=== PATIENT | female | born 1945 | race African-American/Black ===

== ENCOUNTER 2021-01-28 18:06 | Inpatient (IN) | payer MEDICARE, MEDICAID ==
[~2021-01-28] VITALS: Ht 165.1 cm; Wt 89.6 kg
[2021-01-28 20:35] LABS: Hematocrit 34.3 % (36.0-46.0); Hemoglobin 11.6 g/dL (12.2-16.2); Mean Corpuscular Hemoglobin 29.2 pg (28.0-32.0); Mean Corpuscular Hgb Conc. 33.8 g/dL (32.0-36.0); Mean Corpuscular Volume 86.2 fL (80.0-100.0); Red Blood Cells 3.98 10^6/uL (4.0-5.20); White Blood Cell 10.6 10^3/uL (4.4-10.8)
[2021-01-28 20:36] LABS: Basophils % (manual) 0 (0.0-2.0); Blast Cells 0; Eosinophils % (manual) 0 (0-7); Metamyelocytes % 0; Myelocytes % 0; Promyelocytes % 0; Reactive Lymphocytes 0
[2021-01-28 20:55] LABS: Albumin 2.6 g/dL (3.4-5.0); Calcium 8.5 mg/dL (8.5-10.1)
[2021-01-28 21:00] LABS: BUN/Creatinine Ratio 20.9; Bilirubin, Total 0.9 mg/dL (0.2-1.0); Total Protein 8.3 g/dL (6.4-8.2)
[2021-01-28 21:41] LABS: Band Neutrophils % (manual) 6; Lymphocytes % (manual) 4 (10.0-50.0); Monocytes % (manual) 12 (0-12)
[2021-01-28] MEDS ORDERED: MORPHINE SULFATE INJECTION 2 MG/ML SYRG IV PRN (23:00)
[2021-01-28] MEDS ORDERED: ALBUMIN 5% 250 ML IV ONE (23:00)
[2021-01-28] MEDS ORDERED: NITROGLYCERIN 0.4 MG SL TAB SL PRN (23:00)
[2021-01-28] MEDS ORDERED: cefTRIAXone 1GM/50ML D5W 50 ML IV ONE (23:00)
[2021-01-28] MEDS ORDERED: AZITHROMYCIN 500MG/ 250ML 250 ML IV SCH (23:00)
[2021-01-28] MEDS ORDERED: ONDANSETRON HCL 4 MG/2 ML VIAL IV PRN (23:00)
[2021-01-28] MEDS ORDERED: TEMAZEPAM 15 MG CAP PO PRN (23:00)
[2021-01-28] MEDS ORDERED: ACETAMINOPHEN 500 MG TAB PO PRN (23:00)
[2021-01-28] MEDS: DexAMETHasone SOD PHOS 10MG/1ML VIAL INJ IV SCH (23:32)
[2021-01-28] MEDS: SODIUM CHLORIDE 0.9% 1,000 ML IV SCH (23:33)
[2021-01-29] MEDS ORDERED: diphenhdrAMINE HCL 50 MG/1 ML VL IV ONE (03:00)
[2021-01-29 06:35] LABS: Hematocrit 30.5 % (36.0-46.0); Hemoglobin 10.6 g/dL (12.2-16.2); Mean Corpuscular Hemoglobin 29.7 pg (28.0-32.0); Mean Corpuscular Hgb Conc. 34.6 g/dL (32.0-36.0); Mean Corpuscular Volume 85.6 fL (80.0-100.0); Red Blood Cells 3.56 10^6/uL (4.0-5.20); Red Cell Distribution Width 17.1 % (11.8-14.3); White Blood Cell 9.7 10^3/uL (4.4-10.8)
[2021-01-29 06:51] LABS: Albumin 2.6 g/dL (3.4-5.0); Calcium 8.2 mg/dL (8.5-10.1); Magnesium 3.8 mg/dL (1.6-2.6); Potassium 3.8 mmol/L (3.5-5.1)
[2021-01-29 07:02] LABS: Bilirubin, Total 0.7 mg/dL (0.2-1.0); CRP High Sensitivity 14.9 mg/dL (< 0.3); Total Protein 7.4 g/dL (6.4-8.2)
[2021-01-29 07:05] LABS: Basophils % (manual) 0 (0.0-2.0); Blast Cells 0; Eosinophils % (manual) 0 (0-7); Promyelocytes % 0; Reactive Lymphocytes 0
[2021-01-29 07:37] LABS: Band Neutrophils % (manual) 4; Lymphocytes % (manual) 8 (10.0-50.0); Metamyelocytes % 4; Monocytes % (manual) 6 (0-12); Myelocytes % 2
[2021-01-29] MEDS ORDERED: cefTRIAXone 1GM/50ML D5W 50 ML IV SCH (09:00)
[2021-01-29] MEDS ORDERED: ENOXAPARIN SOD 40 MG/0.4 ML SYRINGE SC SCH (10:00)
[2021-01-29] MEDS: DexAMETHasone SOD PHOS 10MG/1ML VIAL INJ IV SCH (10:30)
[2021-01-29] MEDS: PANTOPRAZOLE 40 MG TAB PO SCH (10:30)
[2021-01-29] MEDS: CHOLECALCIFEROL (VITD3) 2,000 UNIT CAP/TAB PO SCH (10:30)
[2021-01-29] MEDS: ASCORBIC ACID 1,000 MG TAB PO SCH (10:30)
[2021-01-29] MEDS: ZINC SULFATE 220mg CAP or TAB PO SCH (10:30)
[2021-01-29] MEDS ORDERED: FLUT50SP NAS (10:46)
[2021-01-29] MEDS ORDERED: AMLO-496 PO (10:46)
[2021-01-29] MEDS ORDERED: MELO1TAB73 PO (10:46)
[2021-01-29] MEDS ORDERED: ALLO100T PO (10:46)
[2021-01-29] MEDS: SODIUM CHLORIDE 0.9% 1,000 ML IV SCH ×2 (14:29→17:19)
[2021-01-29] MEDS ORDERED: REMDESIVIR PER PHARMACY 0 ML IV SCH (16:15)
[2021-01-29] MEDS ORDERED: FUROSEMIDE 20 MG/2 ML VIAL IV ONE (16:30)
[2021-01-29] MEDS ORDERED: DEXTROSE (50%) 50ML SYRG IV PRN (16:30)
[2021-01-29] MEDS ORDERED: hydrALAZINE HCL 20 MG/ML VL IV PRN (16:30)
[2021-01-29 16:41] LABS: Urine Bacteria NONE SEEN /hpf (None Seen); Urine Blood TRACE /uL (Negative); Urine Hyaline Cast FEW /lpf (0 - 2); Urine Mucus FEW (None Seen); Urine Specific Gravity 1.021 (1.001-1.035); Urine WBC 7 /hpf (0 - 5)
[2021-01-29 17:02] LABS: % Iron Saturation 12.4 % (15-50)
[2021-01-29] MEDS: InsuLIN REG 1unit/0.01ml Soln (100units/ml) SC SCH (18:00)
[2021-01-29] MEDS ORDERED: REMDESIVIR 200 MG in NS 210ml LOADING DOSE ADULT IV ONE (18:00)
[2021-01-29] MEDS: ACCU-CHEK COMFORT CURVE STRIP VI SCH (18:09)
[2021-01-29] MEDS: BUDESONIDE (INHALATION) 180 MCG IH IN SCH (18:53)
[2021-01-29] MEDS: PIPERACILLIN-TAZOB 3.375GM 100 ML IV SCH (20:40)
[2021-01-29] MEDS ORDERED: DOXYCYCLINE 100 MG TAB/CAP PO SCH (22:00)
[2021-01-29] MEDS: ENOXAPARIN SOD 40 MG/0.4 ML SYRINGE SC SCH (22:30)
[2021-01-30] MEDS: ACCU-CHEK COMFORT CURVE STRIP VI SCH ×4 (00:30→18:00)
[2021-01-30] MEDS: InsuLIN REG 1unit/0.01ml Soln (100units/ml) SC SCH ×4 (00:30→18:00)
[2021-01-30] MEDS: PIPERACILLIN-TAZOB 3.375GM 100 ML IV SCH ×4 (02:57→21:45)
[2021-01-30] MEDS: ALBUTEROL SULF HFA 90MCG INH 200DOSE IN PRN ×2 (07:58→20:58)
[2021-01-30] MEDS: BUDESONIDE (INHALATION) 180 MCG IH IN SCH ×2 (07:58→20:58)
[2021-01-30] MEDS: SODIUM CHLORIDE 0.9% 1,000 ML IV SCH (08:55)
[2021-01-30] MEDS: DexAMETHasone SOD PHOS 10MG/1ML VIAL INJ IV SCH (09:14)
[2021-01-30] MEDS: ASCORBIC ACID 1,000 MG TAB PO SCH (09:15)
[2021-01-30] MEDS: ZINC SULFATE 220mg CAP or TAB PO SCH (09:15)
[2021-01-30] MEDS: FUROSEMIDE 20 MG/2 ML VIAL IV SCH (09:15)
[2021-01-30] MEDS: CHOLECALCIFEROL (VITD3) 2,000 UNIT CAP/TAB PO SCH (09:16)
[2021-01-30] MEDS: IVERMECTIN 3 MG TAB PO SCH (09:16)
[2021-01-30] MEDS: amLODIPine BESYLATE 5 MG TAB PO SCH (09:17)
[2021-01-30] MEDS: ENOXAPARIN SOD 40 MG/0.4 ML SYRINGE SC SCH (09:18)
[2021-01-30] MEDS: PANTOPRAZOLE 40 MG TAB PO SCH (09:31)
[2021-01-30] MEDS ORDERED: AZITHROMYCIN 250 MG TAB PO SCH (10:00)
[2021-01-30 11:29] LABS: Lactic Acid w/Reflex 3.3 mmol/L (0.4-2.0)
[2021-01-30 11:31] LABS: Albumin 2.4 g/dL (3.4-5.0); Calcium 8.5 mg/dL (8.5-10.1); Magnesium 2.4 mg/dL (1.6-2.6); Potassium 3.4 mmol/L (3.5-5.1)
[2021-01-30 11:43] LABS: INR 1.06 (0.9-1.15)
[2021-01-30 11:45] LABS: BUN/Creatinine Ratio 18.5; Bilirubin, Total 0.7 mg/dL (0.2-1.0); CRP High Sensitivity 10.6 mg/dL (< 0.3); Total Protein 7.5 g/dL (6.4-8.2)
[2021-01-30] MEDS: REMDESIVIR 100mg 100 MG in SODIUM CHL 0.9% 230 ML IV SCH (16:09)
[2021-01-30] MEDS ORDERED: POTASSIUM EFFERVESENT TAB 25 MEQ PO ONE (17:15)
[2021-01-30 22:56] VITALS: BP 144/69
[2021-01-31] MEDS ORDERED: PNEUMOCOCCAL VACC POLYS 25 MCG/0.5 ML VIAL IM ONE (00:15)
[2021-01-31] MEDS ORDERED: INFLUENZA QUAD 2021-2022 0.5 ML SYRG IM ONE (00:15)
[2021-01-31] MEDS: ENOXAPARIN SOD 40 MG/0.4 ML SYRINGE SC SCH ×3 (01:00→21:39)
[2021-01-31] MEDS: ACCU-CHEK COMFORT CURVE STRIP VI SCH ×5 (01:00→23:45)
[2021-01-31] MEDS: SODIUM CHLORIDE 0.9% 1,000 ML IV SCH ×2 (01:35→06:06)
[2021-01-31] MEDS: PIPERACILLIN-TAZOB 3.375GM 100 ML IV SCH ×4 (02:06→20:19)
[2021-01-31 05:00] VITALS: BP 132/69
[2021-01-31] MEDS: InsuLIN REG 1unit/0.01ml Soln (100units/ml) SC SCH ×5 (05:52→23:45)
[2021-01-31 06:46] LABS: Basophils # (auto) 0 10 ^3/uL (0-0.2); Basophils % (auto) 0.3 % (0.0-2.0); Eosinophils # (auto) 0 10 ^3/uL (0-0.8); Eosinophils % (auto) 0.2 % (0.0-7.0); Hematocrit 30.5 % (36.0-46.0); Hemoglobin 10.3 g/dL (12.2-16.2); Lymphocytes # (auto) 0.9 10 ^3/uL (0.4-5.4); Mean Corpuscular Hemoglobin 28.9 pg (28.0-32.0); Mean Corpuscular Hgb Conc. 33.6 g/dL (32.0-36.0); Mean Corpuscular Volume 86.1 fL (80.0-100.0); Monocytes # (auto) 2.3 10 ^3/uL (0-1.3); Neutrophils % (auto) 77.5 % (37.0-80.0); Nucleated Red Blood Cells % 0.2 %; Red Blood Cells 3.55 10^6/uL (4.0-5.20); Red Cell Distribution Width 16.9 % (11.8-14.3); White Blood Cell 14.2 10^3/uL (4.4-10.8)
[2021-01-31 07:02] LABS: Albumin 2.2 g/dL (3.4-5.0); BUN/Creatinine Ratio 23.9; Potassium 3.7 mmol/L (3.5-5.1)
[2021-01-31] MEDS: BUDESONIDE (INHALATION) 180 MCG IH IN SCH ×2 (07:03→21:27)
[2021-01-31] MEDS: ALBUTEROL SULF HFA 90MCG INH 200DOSE IN PRN ×2 (07:03→21:27)
[2021-01-31 07:04] LABS: INR 1.12 (0.9-1.15)
[2021-01-31 07:05] LABS: Bilirubin, Total 0.7 mg/dL (0.2-1.0); Total Protein 6.2 g/dL (6.4-8.2)
[2021-01-31 09:00] VITALS: BP 156/72
[2021-01-31] MEDS: ZINC SULFATE 220mg CAP or TAB PO SCH (09:31)
[2021-01-31] MEDS: DexAMETHasone SOD PHOS 10MG/1ML VIAL INJ IV SCH (09:31)
[2021-01-31] MEDS: CHOLECALCIFEROL (VITD3) 2,000 UNIT CAP/TAB PO SCH (09:32)
[2021-01-31] MEDS: IVERMECTIN 3 MG TAB PO SCH (09:32)
[2021-01-31] MEDS: PANTOPRAZOLE 40 MG TAB PO SCH (09:32)
[2021-01-31] MEDS: ASCORBIC ACID 1,000 MG TAB PO SCH (09:32)
[2021-01-31] MEDS: FUROSEMIDE 20 MG/2 ML VIAL IV SCH (09:33)
[2021-01-31] MEDS: amLODIPine BESYLATE 5 MG TAB PO SCH (09:34)
[2021-01-31 13:00] VITALS: BP 144/68
[2021-01-31] MEDS: REMDESIVIR 100mg 100 MG in SODIUM CHL 0.9% 230 ML IV SCH (14:31)
[2021-01-31 16:41] VITALS: BP 142/67
[2021-01-31 22:00] VITALS: BP 121/37
[2021-02-01] MEDS: PIPERACILLIN-TAZOB 3.375GM 100 ML IV SCH ×4 (02:30→19:41)
[2021-02-01 05:00] VITALS: BP 108/51
[2021-02-01] MEDS: ACCU-CHEK COMFORT CURVE STRIP VI SCH ×2 (05:51→12:10)
[2021-02-01] MEDS: InsuLIN REG 1unit/0.01ml Soln (100units/ml) SC SCH ×2 (05:51→12:43)
[2021-02-01 06:20] LABS: Potassium 3.6 mmol/L (3.5-5.1)
[2021-02-01 06:27] LABS: Albumin 2.2 g/dL (3.4-5.0); BUN/Creatinine Ratio 22.8; Bilirubin, Total 0.6 mg/dL (0.2-1.0); Calcium 7.4 mg/dL (8.5-10.1)
[2021-02-01 06:32] LABS: Hemoglobin 9.4 g/dL (12.2-16.2); Mean Corpuscular Hemoglobin 29.1 pg (28.0-32.0); Mean Corpuscular Hgb Conc. 33.6 g/dL (32.0-36.0); Mean Corpuscular Volume 86.6 fL (80.0-100.0); Red Blood Cells 3.24 10^6/uL (4.0-5.20); Red Cell Distribution Width 17.1 % (11.8-14.3); White Blood Cell 10.8 10^3/uL (4.4-10.8)
[2021-02-01 06:44] LABS: Basophils % (manual) 0 (0.0-2.0); Blast Cells 0; Eosinophils % (manual) 0 (0-7); Metamyelocytes % 0; Myelocytes % 0; Promyelocytes % 0; Reactive Lymphocytes 0
[2021-02-01] MEDS: BUDESONIDE (INHALATION) 180 MCG IH IN SCH ×2 (06:45→22:16)
[2021-02-01] MEDS: ALBUTEROL SULF HFA 90MCG INH 200DOSE IN PRN ×2 (06:45→22:16)
[2021-02-01 07:57] LABS: Band Neutrophils % (manual) 3; Lymphocytes % (manual) 10 (10.0-50.0); Monocytes % (manual) 7 (0-12)
[2021-02-01 09:00] VITALS: BP 123/59
[2021-02-01] MEDS: FUROSEMIDE 20 MG/2 ML VIAL IV SCH (09:10)
[2021-02-01] MEDS: ZINC SULFATE 220mg CAP or TAB PO SCH (09:11)
[2021-02-01] MEDS: DexAMETHasone SOD PHOS 10MG/1ML VIAL INJ IV SCH (09:11)
[2021-02-01] MEDS: PANTOPRAZOLE 40 MG TAB PO SCH (09:12)
[2021-02-01] MEDS: ENOXAPARIN SOD 40 MG/0.4 ML SYRINGE SC SCH ×2 (09:13→21:47)
[2021-02-01] MEDS: CHOLECALCIFEROL (VITD3) 2,000 UNIT CAP/TAB PO SCH (09:13)
[2021-02-01] MEDS: amLODIPine BESYLATE 5 MG TAB PO SCH (09:13)
[2021-02-01] MEDS: ASCORBIC ACID 1,000 MG TAB PO SCH (09:13)
[2021-02-01] MEDS: IVERMECTIN 3 MG TAB PO SCH (09:14)
[2021-02-01] MEDS: SODIUM CHLORIDE 0.9% 1,000 ML IV SCH (12:09)
[2021-02-01 13:00] VITALS: BP 134/70
[2021-02-01] MEDS: REMDESIVIR 100mg 100 MG in SODIUM CHL 0.9% 230 ML IV SCH (14:28)
[2021-02-01 17:00] VITALS: BP 135/71
[2021-02-01 22:25] VITALS: BP 147/69
[2021-02-02] MEDS: SODIUM CHLORIDE 0.9% 1,000 ML IV SCH ×2 (03:35→14:20)
[2021-02-02] MEDS: PIPERACILLIN-TAZOB 3.375GM 100 ML IV SCH ×4 (04:27→20:00)
[2021-02-02 05:25] VITALS: BP 128/69
[2021-02-02 06:45] LABS: Albumin 2.2 g/dL (3.4-5.0); Calcium 7.9 mg/dL (8.5-10.1); Potassium 3.4 mmol/L (3.5-5.1)
[2021-02-02 06:50] LABS: BUN/Creatinine Ratio 22.9; Bilirubin, Total 0.5 mg/dL (0.2-1.0); Total Protein 6.1 g/dL (6.4-8.2)
[2021-02-02] MEDS: ALBUTEROL SULF HFA 90MCG INH 200DOSE IN PRN ×2 (07:50→23:16)
[2021-02-02] MEDS: BUDESONIDE (INHALATION) 180 MCG IH IN SCH ×2 (07:50→23:16)
[2021-02-02 09:00] VITALS: BP 124/65
[2021-02-02] MEDS: DexAMETHasone SOD PHOS 10MG/1ML VIAL INJ IV SCH (10:06)
[2021-02-02] MEDS: amLODIPine BESYLATE 5 MG TAB PO SCH (10:07)
[2021-02-02] MEDS: ASCORBIC ACID 1,000 MG TAB PO SCH (10:07)
[2021-02-02] MEDS: ENOXAPARIN SOD 40 MG/0.4 ML SYRINGE SC SCH ×2 (10:07→21:09)
[2021-02-02] MEDS: IVERMECTIN 3 MG TAB PO SCH (10:07)
[2021-02-02] MEDS: PANTOPRAZOLE 40 MG TAB PO SCH (10:07)
[2021-02-02] MEDS: CHOLECALCIFEROL (VITD3) 2,000 UNIT CAP/TAB PO SCH (10:07)
[2021-02-02] MEDS: ZINC SULFATE 220mg CAP or TAB PO SCH (10:08)
[2021-02-02] MEDS: FUROSEMIDE 20 MG/2 ML VIAL IV SCH (10:08)
[2021-02-02 12:54] VITALS: BP 110/54
[2021-02-02] MEDS ORDERED: VANCOMYCIN HCL 125MG/5ML ORAL SOL PO ONE (14:00)
[2021-02-02] MEDS ORDERED: POTASSIUM EFFERVESENT TAB 25 MEQ PO ONE (14:00)
[2021-02-02] MEDS: REMDESIVIR 100mg 100 MG in SODIUM CHL 0.9% 230 ML IV SCH (15:38)
[2021-02-02 17:04] VITALS: BP 129/78
[2021-02-02] MEDS ORDERED: VANCOMYCIN HCL 125MG/5ML ORAL SOL PO SCH (18:00)
[2021-02-02 22:00] VITALS: BP 147/64
[2021-02-03] MEDS: PIPERACILLIN-TAZOB 3.375GM 100 ML IV SCH ×4 (01:32→19:14)
[2021-02-03] MEDS: SODIUM CHLORIDE 0.9% 1,000 ML IV SCH (04:53)
[2021-02-03 05:00] VITALS: BP 146/67
[2021-02-03 06:55] LABS: Hematocrit 27.7 % (36.0-46.0)
[2021-02-03 06:57] LABS: Hemoglobin 9.9 g/dL (12.2-16.2)
[2021-02-03 07:17] LABS: Potassium 3.7 mmol/L (3.5-5.1)
[2021-02-03 07:29] LABS: Albumin 2.2 g/dL (3.4-5.0); BUN/Creatinine Ratio 23.3; Bilirubin, Total 0.6 mg/dL (0.2-1.0); CRP High Sensitivity 4.42 mg/dL (< 0.3); Calcium 7.9 mg/dL (8.5-10.1); Magnesium 2.9 mg/dL (1.6-2.6); Total Protein 6.2 g/dL (6.4-8.2)
[2021-02-03 08:00] VITALS: BP 143/67
[2021-02-03] MEDS: BUDESONIDE (INHALATION) 180 MCG IH IN SCH ×2 (08:41→20:09)
[2021-02-03] MEDS: ALBUTEROL SULF HFA 90MCG INH 200DOSE IN PRN (08:41)
[2021-02-03 09:00] VITALS: BP 143/67
[2021-02-03] MEDS: DexAMETHasone SOD PHOS 10MG/1ML VIAL INJ IV SCH (09:23)
[2021-02-03] MEDS: FUROSEMIDE 20 MG/2 ML VIAL IV SCH (09:24)
[2021-02-03] MEDS: ZINC SULFATE 220mg CAP or TAB PO SCH (09:24)
[2021-02-03] MEDS: POTASSIUM CHL 10 Meq TABLET PO SCH (09:25)
[2021-02-03] MEDS: ASCORBIC ACID 1,000 MG TAB PO SCH (09:26)
[2021-02-03] MEDS: PANTOPRAZOLE 40 MG TAB PO SCH ×2 (09:26→22:02)
[2021-02-03] MEDS: CHOLECALCIFEROL (VITD3) 2,000 UNIT CAP/TAB PO SCH (09:26)
[2021-02-03] MEDS: amLODIPine BESYLATE 5 MG TAB PO SCH (09:26)
[2021-02-03] MEDS: IVERMECTIN 3 MG TAB PO SCH (09:26)
[2021-02-03] MEDS: ENOXAPARIN SOD 40 MG/0.4 ML SYRINGE SC SCH ×2 (09:27→22:02)
[2021-02-03 12:55] VITALS: BP 136/75
[2021-02-03 17:12] VITALS: BP 99/59
[2021-02-03 21:30] VITALS: BP 127/69
[2021-02-04] MEDS: PIPERACILLIN-TAZOB 3.375GM 100 ML IV SCH ×4 (01:28→20:41)
[2021-02-04 05:00] VITALS: BP 128/69
[2021-02-04] MEDS: ALBUTEROL SULF HFA 90MCG INH 200DOSE IN PRN ×2 (06:26→22:33)
[2021-02-04] MEDS: BUDESONIDE (INHALATION) 180 MCG IH IN SCH ×2 (06:26→22:33)
[2021-02-04 08:00] VITALS: BP_SYST 127; BP_SYST 134; BP_DIAS 66; BP_DIAS 69
[2021-02-04] MEDS: DexAMETHasone SOD PHOS 10MG/1ML VIAL INJ IV SCH (08:03)
[2021-02-04] MEDS: POTASSIUM CHL 10 Meq TABLET PO SCH (08:03)
[2021-02-04] MEDS: ZINC SULFATE 220mg CAP or TAB PO SCH (08:03)
[2021-02-04] MEDS: PANTOPRAZOLE 40 MG TAB PO SCH ×2 (08:04→21:25)
[2021-02-04] MEDS: ASCORBIC ACID 1,000 MG TAB PO SCH (08:04)
[2021-02-04] MEDS: amLODIPine BESYLATE 5 MG TAB PO SCH (08:04)
[2021-02-04] MEDS: CHOLECALCIFEROL (VITD3) 2,000 UNIT CAP/TAB PO SCH (08:05)
[2021-02-04] MEDS: ENOXAPARIN SOD 40 MG/0.4 ML SYRINGE SC SCH ×2 (08:05→21:25)
[2021-02-04 08:12] LABS: Hematocrit 27.5 % (36.0-46.0); Hemoglobin 9.8 g/dL (12.2-16.2); Mean Corpuscular Hemoglobin 30.2 pg (28.0-32.0); Mean Corpuscular Hgb Conc. 35.7 g/dL (32.0-36.0); Mean Corpuscular Volume 84.5 fL (80.0-100.0); Red Blood Cells 3.25 10^6/uL (4.0-5.20); Red Cell Distribution Width 16.9 % (11.8-14.3); White Blood Cell 6.9 10^3/uL (4.4-10.8)
[2021-02-04 08:17] LABS: Potassium 3.7 mmol/L (3.5-5.1)
[2021-02-04 08:49] LABS: BUN/Creatinine Ratio 28.9
[2021-02-04 08:50] LABS: Albumin 2.2 g/dL (3.4-5.0); Bilirubin, Total 0.4 mg/dL (0.2-1.0); Calcium 8.1 mg/dL (8.5-10.1)
[2021-02-04 08:56] LABS: Band Neutrophils % (manual) 0; Basophils % (manual) 0 (0.0-2.0); Blast Cells 0; Metamyelocytes % 0; Promyelocytes % 0; Reactive Lymphocytes 0
[2021-02-04 09:03] LABS: Eosinophils % (manual) 1 (0-7); Lymphocytes % (manual) 17 (10.0-50.0); Monocytes % (manual) 10 (0-12); Myelocytes % 3
[2021-02-04] MEDS: FUROSEMIDE 20 MG/2 ML VIAL IV SCH (10:00)
[2021-02-04 12:00] VITALS: BP 120/68
[2021-02-04 16:00] VITALS: BP 143/97
[2021-02-04 20:00] VITALS: BP 125/59
[2021-02-04 22:00] VITALS: BP 125/69
[2021-02-05] MEDS: PIPERACILLIN-TAZOB 3.375GM 100 ML IV SCH ×4 (02:30→20:00)
[2021-02-05 05:00] VITALS: BP 152/75
[2021-02-05 06:24] VITALS: BP 118/68
[2021-02-05 07:19] LABS: White Blood Cell 5.8 10^3/uL (4.4-10.8)
[2021-02-05 07:22] LABS: Hematocrit 26.3 % (36.0-46.0); Hemoglobin 9.6 g/dL (12.2-16.2); Mean Corpuscular Volume 84.9 fL (80.0-100.0); Red Cell Distribution Width 17.3 % (11.8-14.3)
[2021-02-05 07:23] LABS: Mean Corpuscular Hgb Conc. 36.5 g/dL (32.0-36.0)
[2021-02-05 07:24] LABS: Band Neutrophils % (manual) 0; Basophils % (manual) 0 (0.0-2.0); Blast Cells 0; Metamyelocytes % 0; Myelocytes % 0; Promyelocytes % 0; Reactive Lymphocytes 0
[2021-02-05 07:29] LABS: Potassium 3.4 mmol/L (3.5-5.1)
[2021-02-05 07:41] LABS: Albumin 2.3 g/dL (3.4-5.0); BUN/Creatinine Ratio 26.2; Bilirubin, Total 0.4 mg/dL (0.2-1.0)
[2021-02-05 09:00] VITALS: BP 153/70
[2021-02-05] MEDS: DexAMETHasone SOD PHOS 10MG/1ML VIAL INJ IV SCH (09:21)
[2021-02-05] MEDS: ZINC SULFATE 220mg CAP or TAB PO SCH (09:22)
[2021-02-05] MEDS: POTASSIUM CHL 10 Meq TABLET PO SCH (09:22)
[2021-02-05] MEDS: FUROSEMIDE 20 MG/2 ML VIAL IV SCH (09:22)
[2021-02-05] MEDS: PANTOPRAZOLE 40 MG TAB PO SCH (09:23)
[2021-02-05] MEDS: ENOXAPARIN SOD 40 MG/0.4 ML SYRINGE SC SCH (09:23)
[2021-02-05] MEDS: ASCORBIC ACID 1,000 MG TAB PO SCH (09:23)
[2021-02-05] MEDS: CHOLECALCIFEROL (VITD3) 2,000 UNIT CAP/TAB PO SCH (09:23)
[2021-02-05] MEDS: amLODIPine BESYLATE 5 MG TAB PO SCH (09:23)
[2021-02-05 09:52] LABS: Eosinophils % (manual) 1 (0-7); Lymphocytes % (manual) 30 (10.0-50.0); Monocytes % (manual) 3 (0-12)
[2021-02-05] MEDS ORDERED: CHOL1CAP47 PO (10:46)
[2021-02-05] MEDS ORDERED: DEXA4TAB90 PO (10:46)
[2021-02-05] MEDS ORDERED: ALBUAER3 IN (10:46)
[2021-02-05] MEDS ORDERED: LEVO750T64 PO (10:46)
[2021-02-05] MEDS ORDERED: ASCO10003 PO (10:46)
[2021-02-05 13:00] VITALS: BP 122/62
[2021-02-05 17:00] VITALS: BP 128/68
[2021-02-05 18:40] VITALS: BP 128/68
== END 2021-02-05 20:45 | disposition home or self-care (01) | DRG 871 ==
LOC: EDBD 18:06 → ER 18:10 → TELE 22:56 → TELE-EAST 23:43 → TELE 01-29 04:21 → TELE-EAST 01-31 00:38
PROVIDERS: ADMIT Nurse Practitioner; ATTEND Internal Medicine Pulmonary Disease
PROC: XW033E5 Introduction of Remdesivir Anti-infective into Peripheral Vein, Percutaneous Approach, New Technology Group 5 (ICD-10-PCS; principal; 2021-01-29)
DX: A41.89 Other specified sepsis (principal); U07.1 COVID-19; J12.82 Pneumonia due to coronavirus disease 2019; J96.01 Acute respiratory failure with hypoxia; N17.0 Acute kidney failure with tubular necrosis; E43 Unspecified severe protein-calorie malnutrition; D64.9 Anemia, unspecified; E55.9 Vitamin D deficiency, unspecified; E66.01 Morbid (severe) obesity due to excess calories; D89.839 Cytokine release syndrome, grade unspecified; R42 Dizziness and giddiness; I12.9 Hypertensive chronic kidney disease with stage 1 through stage 4 chronic kidney disease, or unspecified chronic kidney disease; E87.6 Hypokalemia; N18.2 Chronic kidney disease, stage 2 (mild); Z68.32 Body mass index [BMI] 32.0-32.9, adult
CPT/HCPCS: 36415; 36600; 71045; 74176; 80053; 80061; 81001; 82306; 82728; 82805; 82962; 83036; 83540; 83550; 83605; 83615; 83735; 83880; 84443; 84484; 85007; 85014; 85018; 85025; 85027; 85379; 85610; 86141; 87426; 87493; 90686; 93005; 93306; 93970; 94640; 96365; 96368; 97110; 97116; 97163; 97530; G0378; J0696; J1100; J1815; J2405; J2543

== ENCOUNTER 2024-04-06 11:55 | Inpatient (IN) | payer MEDICARE, MEDICAID ==
[~2024-04-06] VITALS: Ht 162.6 cm; Wt 85.1 kg
[~2024-04-06 11:55] MED LIST: ALBUAER3 IN; ALLO100T PO; AMLO1TAB23 PO; ASCO10003 PO; CHOL1CAP47 PO; DEXA4TAB90 PO; LEVO750T40 PO
--- NOTE | 2024-04-06 12:12 | ECG ---
[facility] Test Date: 2024-04-06 Test Time: 12:11:11 Pat Name: SAMRA BORRERO Department: ER Room: [address] [place] [address] Gender: F Parts Department Manager: CHIDI : 1945 Requested By: BARON SHEIKH Order Number: [id number] Reading MD: Cheng Leyva Measurements Intervals [place] Rate: 65 P: 27 ND: 161 QRS: -24 QRSD: 95 T: 19 QT: 478 QTc: 498 Interpretive Statements Sinus rhythm Probable left atrial enlargement Abnormal R-wave progression, late transition Left ventricular hypertrophy Borderline prolonged QT interval Electronically Signed On 04-10-2024 21:50:22 PST by Cheng Leyva Please click the below link to view image of tracing.
--- NOTE | 2024-04-06 12:18 | ED.PDOC ---
HPI Comments GISSELL: HPI: Poor Historian. 78-year-old female presents to the ED from outpatient clinic for evaluation of hypertension. Patient was on her way to get a vaginal ablation and she was found with elevated blood pressure greater than 200 systolic daily. She did take her medication for blood pressure this morning. She is on losartan. Patient has associated mild dizziness. Initial blood pressure here in triage was right-sided 209/107 and left-sided tooth 33/93. Heart rate is normal. Patient has some associated mild dizziness but no headaches or focal neurological deficits. Past Medical History: Hypertension, gout, anemia Past Surgical History: REVIEW OF SYSTEMS: CONSTITUTIONAL: Denies acute: fever, diaphoresis, chills, generalized weakness. HEAD: Denies acute: headache, photophobia Eyes: Denies acute: Double vision, vision loss, eye pain, eye discharge. EARS: Denies acute: tinnitus, hearing loss, ear discharge, ear pain, THROAT: Denies acute: sore throat, swelling, difficulty swallowing , pain with swallowing, change in voice. NECK: Denies acute: neck pain, neck swelling, stiff neck. HEART: Denies acute : chest pain, palpitations, LUNGS: Denies acute: SOB, wheezing, cough, hemoptysis ABDOMEN: Denies acute: abdominal pain, Nausea, Vomiting, diarrhea, melena , hematemesis, hematochezia SKIN: Denies acute: rash, redness, lesions, itchiness. EXTREMITIES: Denies acute: calf pain, numbness, tingling, weakness, denies pain in extremity. Denies acute: Low back pain. Neuro: Denies acute: focal neurological deficit, motor or sensory focal neurological deficit, tremors, seizure like activity, confusion, dizziness, change in mental status, loss of bowel or bladder function, cauda equina like symptoms. : Denies acute: dysuria, hematuria, flank pain, increase in urinary frequency. PSYCH: Denies acute: hallucination, suicidal ideation, homicidal ideation. FEMALE: Denies acute: abnormal vaginal bleeding, foul odor, unusual discharge. PHYSICAL EXAM: General: no acute distress, awake and alert. Head: normocephalic, atraumatic. Neck: supple, trachea is midline, no swelling. Throat: Normal phonation. Eyes:, no erythema, no purulent discharge, no proptosis, no icterus. Heart: regular rate, regular rhythm, no significant murmur appreciated. Lungs: no apparent respiratory distress, Able to speak in full sentences. No wheezing, no rhonchi, no crackles. No stridors Clear to auscultation bilaterally. Abdomen: non tender to palpation, non distended, soft, no guarding, no rebound, + bowel sounds. Neuro: Awake, Alert, oriented to name, self, situation, follows commands GCS=15. Speech is normal. Skin: no petechia, no purpura, no cyanosis, non-pale, not jaundice. Lower extremities: --no - Pitting edema no deformity, no focal swelling, no calf TTP. Makes eye contact. moves all four extremities. Face: no apparent facial droop. Ambulating in the ED independently. ED COURSE: Chief Complaint: High Blood Pressure Time Seen by MD: 12:05 Reviewed Notes: Nurses Notes, Allergies Allergies: Coded Allergies: NO KNOWN ALLERGIES (Unverified , 01/28/21) Home Meds Active Scripts Levofloxacin Hemihydrate (LEVOFLOXACIN) 750 Mg Tab, 1 TAB PO DAILY, #5 TAB Prov:PRIMITIVO AZUL MD 02/05/21 Dexamethasone (Decadron) 4 Mg Tab, 4 MG PO DAILY PRN, #7 TAB Prov:PRIMITIVO AZUL MD 02/05/21 Cholecalciferol (Vitamin D3 Super Strength) 2,000 Unit Cap, 4000 UNIT PO DAILY for 30 Days, #30 CAP Prov:PRIMITIVO AZUL MD 02/05/21 Ascorbic Acid (Gnp Vitamin C W/Katelynn Hips) 1,000 Mg Tab, 1000 MG PO DAILY for 30 Days, #30 TAB Prov:PRIMITIVO AZUL MD 02/05/21 Albuterol Sulfate (VENTOLIN MDI) 90 Mcg Ih, 180 MCG IN TIDPRN PRN for 30 Days, #30 INH Prov:PRIMITIVO AZUL MD 02/05/21 Reported Medications Ferrous Sulfate (Ferosul) 325 Mg Tab 04/06/24 Losartan Potassium (Losartan Potassium) 50 Mg Tab, 2 TAB PO 04/06/24 Alendronate Sodium (Alendronate Sodium) 70 Mg Tab, 1 04/06/24 Allopurinol (Allopurinol) 100 Mg Tab, 1 TAB PO BID 01/29/21 Amlodipine Besylate (Amlodipine Besylate) 10 Mg Tab, 1 TAB PO DAILY 01/29/21 Information Source: Patient Mode of Arrival: Ambulatory Severity: Moderate Past Medical History PAST MEDICAL HISTORY: HTN Surgical History: Denies all surgeries MILK COLLECTOR History: No Pertinent MILK COLLECTOR History Family History Family History: Reviewed,noncontributory to illness, Unknown Social History Smoker: Non-Smoker Alcohol: Denies ETOH Use Drugs: Denies Drug Use Lives In: Home Was a procedure done? Was a procedure done?: No CP Differential Dx Differential Diagnosis: N/A Differential Diagnosis: Other (DDX include renal disease, thyroid disease, electrolyte abnormality, increased salt intake, medications non-compliance, undiagnosed HTN, Hypertensive crisis, hypertensive urgency., drug toxicity.) X-Ray, Labs, Meds, VS Vital Signs Date Time Temp Pulse Resp B/P (MAP) Pulse Ox O2 Delivery O2 Flow Rate FiO2 04/06/24 13:25 140/80 04/06/24 13:13 97.9 67 16 177/78 (111) 99 97.9 04/06/24 12:25 65 16 98 Room Air 04/06/24 12:25 98.7 65 17 197/86 (123) 98 98.7 04/06/24 12:24 198/86 04/06/24 12:11 65 04/06/24 12:08 97.8 69 20 209/107 (141) 98 Lab Test 04/06/24 13:34 04/06/24 12:16 Range/Units Troponin I High Sensitivity 10 10 </=34 ng/L White Blood Count 4.5 4.4-10.8 10^3/uL Red Blood Count 4.02 4.0-5.20 10^6/uL Hemoglobin 12.1 L 12.2-16.2 g/dL Hematocrit 33.9 L 36.0-46.0 % Mean Corpuscular Volume 84.2 80.0-100.0 fL Mean Corpuscular Hemoglobin 30.0 28.0-32.0 pg Mean Corpuscular Hemoglobin Concent 35.7 32.0-36.0 g/dL Red Cell Distribution Width 16.7 H 11.8-14.3 % Platelet Count 257 140-450 10^3/uL Mean Platelet Volume 8.8 6.9-10.8 fL Neutrophils (%) (Auto) 37.0-80.0 % Lymphocytes (%) (Auto) 10.0-50.0 % Monocytes (%) (Auto) 0.0-12.0 % Basophils (%) (Auto) 0.0-2.0 % Neutrophils # (Auto) 1.6-8.6 10 ^3/uL Lymphocytes # (Auto) 0.4-5.4 10 ^3/uL Monocytes # (Auto) 0-1.3 10 ^3/uL Differential Total Cells Counted 100.0 100 Neutrophils % (Manual) 50 37.0-80.0 Band Neutrophils % (Manual) 1 Lymphocytes % (Manual) 31 10.0-50.0 Monocytes % (Manual) 17 H 0-12 Eosinophils % (Manual) 1 0-7 Basophils % (Manual) 0 0.0-2.0 Metamyelocytes % (manual) 0 Myelocytes % (Manual) 0 Promyelocytes % (Manual) 0 Blast Cells % (Manual) 0 Reactive Lymphocytes 0 Platelet Estimate [place] Large Platelets Few Sodium Level 138 136-145 mmol/L Potassium Level 3.8 3.5-5.1 mmol/L Chloride Level 104 98-107 mmol/L Carbon Dioxide Level 28 20-31 mmol/L Anion Gap 6 5-15 Blood Urea Nitrogen 17 9-23 mg/dL Creatinine 0.90 0.550-1.02 mg/dL Glomerular Filtration Rate Calc 65 >90 mL/min BUN/Creatinine Ratio 18.9 10.0-20.0 Serum Glucose 89 74-106 mg/dL Calcium Level 9.9 8.7-10.4 mg/dL Total Bilirubin 0.6 0.2-1.0 mg/dL Aspartate Amino Transferase (AST) 23 13-40 U/L Alanine Aminotransferase (ALT) 11 7-40 U/L Alkaline Phosphatase 78 46-116 U/L Total Protein 7.5 5.7-8.2 g/dL Albumin 4.3 3.2-4.8 g/dL Current Medications Medications (Trade) Dose Ordered Sig/Jennifer Route Start Time Stop Time Status Last Admin Nitroglycerin (Ntrostat Sublingual) 0.4 mg ONCE ONCE SL 04/06/24 12:15 04/06/24 12:16 DC 04/06/24 12:24 Meclizine HCl (Antivert Tablet) 25 mg ONCE ONCE PO 04/06/24 14:45 04/06/24 14:46 DC 04/06/24 15:[address] [address] Ph: [phone] DIAGNOSTIC IMAGING Diagnostic Imaging Report : [id number] Signed PATIENT: SAMRA BORRERO ACCT: [id number] UNIT: [id number] : 1945 LOC: ER ROOM / BED: / AGE / SEX: 78 / F ADM STATUS: REG ER SERVICE 1203 ORDERING PHYSICIAN: BARON SHEIKH DO PROCEDURE(s): HWOCT - HEAD WITHOUT CONTRAST REASON: HTN ORDER NUMBER(s): [id number], ACCESSION NUMBER(s): [id number] EXAM: CT HEAD WITHOUT CONTRAST INDICATION: HTN TECHNIQUE: CT of the head without intravenous contrast. Radiation Dose : 1. Head: CT Dose: CTDI volume is 63.4 mGy. Dose-length product is 1122.4 mGy*cm The dose indicators for CT are the volume Computed Tomography (CT) Dose Index (CTDIvol) and the Dose Length Product (DLP), and are measured in units of mGy and mGy-cm, respectively. These indicators are not patient dose, but values generated from the CT scanner acquisition factors. The report includes radiation exposure data for exposures received during this examination. COMPARISON: None FINDINGS: There is no evidence of acute intracranial hemorrhage, extra-axial collection, mass effect, midline shift, herniation or hydrocephalus. The ventricles, sulci and cisterns are age appropriate. The brandon-white differentiation is intact. The visualized paranasal sinuses and mastoid air cells are clear. The surrounding soft tissues and osseous structures are unremarkable. IMPRESSION: No acute intracranial abnormality. ATED BY: LYLE REID MD DICTATED DATE/TIME: 04/06/241246 SIGNED BY: LYLE REID MD SIGNED DATE/TIME: 04/06/241246 CC: [address] [address] Ph: [phone] DIAGNOSTIC IMAGING Diagnostic Imaging Report : [id number] Signed PATIENT: SAMRA BORRERO ACCT: [id number] UNIT: [id number] : 1945 LOC: ER ROOM / BED: / AGE / SEX: 78 / F ADM STATUS: REG ER SERVICE 1203 ORDERING PHYSICIAN: ABRON SHEIKH DO PROCEDURE(s): CXRP - CHEST PORTABLE REASON: HTN ORDER NUMBER(s): [id number], ACCESSION NUMBER(s): [id number] EXAM: XY CHEST PORTABLE Indication: HTN Technique: Single frontal view of the chest was obtained Comparison: CHEST PORTABLE on DOS: 02/01/21, CHEST PORTABLE on DOS: 01/29/21, CHEST PORTABLE on DOS: 01/28/21 FINDINGS: Lines and Tubes: None Lungs: No focal consolidation. Pleura: No effusion. No pneumothorax. Cardiomediastinal contours: Unremarkable. Atherosclerotic vascular calcifications of the thoracic aorta are noted. Bones: No acute osseous abnormality. IMPRESSION: No acute cardiopulmonary disease. ATED BY: LYLE REID MD DICTATED DATE/TIME: 04/06/24 1246 SIGNED BY: LYLE REID MD SIGNED DATE/TIME: 04/06/24 1246 CC: Time of 1ST Reevaluation: 12:35 Reevaluation 1ST: Unchanged Patient Education/Counseling: Diagnosis, Treatment Family Education/Counseling: Diagnosis, Treatment Comments Patient presented with the above HPI.--hypertension and dizziness----workup was initiated. patient was found with the above mentioned diagnosis. the following medications were ordered: please refer to order lists of meds and tests obtained by myself Dr. Sheikh. Patient ED course and VS have been stabilized. Patient has been reassessed in the ED and remained in a stable condition. Pertinent incidental findings were discussed with the patient and/or family. Patient/family voices understanding and is agreeable with plan. Patient has been observed in the ED adequate length of time to insure improvement/stability. Escalation of care considered: Consideration of escalation to observation or admission Patient was ADMITTED to the medicine team for further evaluation and treatment of their presentation. All the reports of any imaging studies that were ordered by myself were reviewed by myself. Departure 1 Departure Time of Disposition: 14:34 Impression: Primary Impression: Hypertensive urgency Additional Impression: Dizziness Disposition: ADMITTED INPATIENT Admit to: Tele Condition: Guarded Discharged With: Self Critical Care Note Critical Care Time?: Yes (35 min-critical care time only) Heart Score Heart Score: Heart Score Response (Comments) Value History Slightly Suspicious 0 EKG Normal 0 Age >65 2 Risk Factors 1 or 2 risk factors 1 Troponin Normal limit 0 Total 3 I personally scribed for BARON SHEIKH DO ([email or web address]) on 04/06/24 at 12:18. El ectronically submitted by Zion Fajardo ([email or web address]). I personally scribed for BARON SHIEKH DO ([email or web address]) on 04/06/24 at 17:36. Elec tronically submitted by Zion Fajardo ([email or web address]). BARON SHEIKH DO Apr 06, 2024 12:18
[2024-04-06] MEDS: NITROGLYCERIN 0.4 MG SL TAB SL ONE (12:24)
[2024-04-06 12:44] LABS: Hematocrit 33.9 % (36.0-46.0); Hemoglobin 12.1 g/dL (12.2-16.2); Mean Corpuscular Hgb Conc. 35.7 g/dL (32.0-36.0); Mean Corpuscular Volume 84.2 fL (80.0-100.0); Platelet Count (auto) 257 10^3/uL (140-450); Red Blood Cells 4.02 10^6/uL (4.0-5.20); Red Cell Distribution Width 16.7 % (11.8-14.3); White Blood Cell 4.5 10^3/uL (4.4-10.8)
--- NOTE | 2024-04-06 12:46 | DVH ---
EXAM: XY CHEST PORTABLE Indication: HTN Technique: Single frontal view of the chest was obtained Comparison: CHEST PORTABLE on DOS: 02/01/21, CHEST PORTABLE on DOS: 01/29/21, CHEST PORTABLE on DOS: 01/28/21 FINDINGS: Lines and Tubes: None Lungs: No focal consolidation. Pleura: No effusion. No pneumothorax. Cardiomediastinal contours: Unremarkable. Atherosclerotic vascular calcifications of the thoracic ao rta are noted. Bones: No acute osseous abnormality. IMPRESSION: No acute cardiopulmonary disease.
--- NOTE | 2024-04-06 12:48 | DVH ---
EXAM: CT HEAD WITHOUT CONTRAST INDICATION: HTN TECHNIQUE: CT of the head without intravenous contrast. Radiation Dose : 1. Head: CT Dose: CTDI volume is 63.4 mGy. Dose-length product is 1122.4 mGy*cm The dose indicators for CT are the volume Computed Tomography (CT) Dose Index (CTDIvol) and the Dose Length Product (DLP), and are measured in units of mGy and mGy-cm, respectively. These indicators are not patient dose, but values generated from the CT scanner acquisition factors. The report includes radiation exposure data for exposures received during this examination. COMPARISON: None FINDINGS: There is no evidence of acute intracranial hemorrhage, extra-axial collection, mass effect, midline s hift, herniation or hydrocephalus. The ventricles, sulci and cisterns are age appropriate. The brandon-white differentiation is intact. The visualized paranasal sinuses and mastoid air cells are clear. The surrounding soft tissues and osseous structures are unremarkable. IMPRESSION: No acute intracranial abnormality.
[2024-04-06 12:49] LABS: Basophils % (manual) 0 (0.0-2.0); Blast Cells 0; Metamyelocytes % 0; Myelocytes % 0; Promyelocytes % 0; Reactive Lymphocytes 0
[2024-04-06 13:03] LABS: Band Neutrophils % (manual) 1; Eosinophils % (manual) 1 (0-7); Large Platelets FEW; Lymphocytes % (manual) 31 (10.0-50.0); Monocytes % (manual) 17 (0-12); Platelet Estimate Adequa
[2024-04-06 13:07] LABS: Alanine Aminotransferase 11 U/L (7-40); Alkaline Phosphatase 78 U/L (46-116); Anion Gap 6 (5-15); Aspartate Aminotransferase 23 U/L (13-40); BUN/Creatinine Ratio 18.9 (10.0-20.0); Blood Urea Nitrogen 17 mg/dL (9-23); Calcium 9.9 mg/dL (8.7-10.4); Carbon Dioxide 28 mmol/L (20-31); Chloride 104 mmol/L (98-107); Glucose 89 mg/dL (74-106); Potassium 3.8 mmol/L (3.5-5.1); Sodium 138 mmol/L (136-145)
[2024-04-06 13:08] LABS: Albumin 4.3 g/dL (3.2-4.8); Bilirubin, Total 0.6 mg/dL (0.2-1.0); Total Protein 7.5 g/dL (5.7-8.2)
[2024-04-06] MEDS: MECLIZINE HCL 25 MG TAB PO ONE (15:11)
[2024-04-06] MEDS ORDERED: ACETAMINOPHEN 325 MG TAB PO PRN (15:15)
[2024-04-06] MEDS ORDERED: ONDANSETRON HCL 4 MG/2 ML VIAL IV PRN (15:15)
[2024-04-06] MEDS ORDERED: hydrALAZINE HCL 20 MG/ML VL IV PRN (15:15)
--- NOTE | 2024-04-06 15:28 | DVHHP2 ---
History of Present Illness Reason for Visit: Elevated BP History of Present Illness Opal Aguirre is a 70-year-old female with past medical history of hypertension, gout, anemia, and who presents to the ED with elevated blood pressure. Patient states that she was going to get a vaginal ablation for a lesion that she had when the office noticed that her blood pressure was 220/118 and a 2nd recheck was 215/110. They advised the patient and her daughter that they were unable to continue with the procedure. The daughter Kath states that she called the PCP and was advised to go to the nearest ED for evaluation. Patient denies any chest pain, shortness of breath, wheezing, fever, chills, recent sick contacts, lightheadedness, weakness, abdominal pain, nausea, vomiting, and diarrhea. Patient reports that if she uses a Rollator with ambulation. Cardiovascular: HTN Heme/Onc: Anemia NOS Rheumatologic: Gout Past Surgical History: Family History: DM, Hypertension, Other (Mom and sister with diabetes and hypertension) Smoke: No ALCOHOL: none Drugs: None Lives: with Family Domestic Violence: Neg Review of Systems Constitutional: Yes: Other (Dizziness after taking 2 nitros in ED); No: Fever, Chills, Sweats, Weakness, Malaise Eyes: No: Pain, Vision change, Conjunctivae inflammation, Eyelid inflammation, Other, Redness ENT: No: Ear pain, Ear discharge, Nose pain, Nose discharge, Nose congestion, Mouth pain, Mouth swelling, Throat pain, Throat swelling, Other Respiratory: No: Cough, Dry, Shortness of breath, SOB with excertion, Wheezing, Hemoptysis, Pleuritic Pain, Sputum, Wheezing, Other Cardiovascular: No: Chest Pain, Palpitations, Orthopnea, Paroxysmal Noc. Dyspnea, Edema, Lt Headedness, Other Gastrointestinal: No: Nausea, Vomiting, Abdominal Pain, Diarrhea, Constipation, Melena, Hematochezia, Other Genitourinary: No Dysuria, No Frequency, No Incontinence, No Hematuria, No Retention, No Other Musculoskeletal: No: other, neck pain, shoulder pain, arm pain, back pain, hand pain, leg pain, foot pain Skin: No: Rash, Lesions, Jaundice, Bruising, Other Neurological: No: Weakness, Numbness, Incoordination, Change in speech, Confusion, Seizures, Other Allergies: Coded Allergies: NO KNOWN ALLERGIES (Unverified , 01/28/21) Exam Vital Signs Vital Signs Date Time Temp Pulse Resp B/P (MAP) Pulse Ox O2 Delivery O2 Flow Rate FiO2 04/06/24 13:25 140/80 04/06/24 13:13 97.9 67 16 99 97.9 04/06/24 12:25 Room Air General Appearance: Alert, Oriented X3, Cooperative, No acute distress HEENT: Atraumatic, PERRLA, EOMI, Mucous membr. moist/pink Respiratory: Clear to auscultation, Normal air movement Cardiovascular: Regular rate, Normal S1, Normal S2, No murmurs Abdominal: Normal bowel sounds, Soft, No tenderness, No hepatospenomegaly, No masses Extremities: No clubbing, No cyanosis, No edema, Normal pulses, No tenderness/swelling Skin: No rashes, No breakdown, No significant lesion Neuro: Normal speech, Normal tone, Sensation intact Psych/Mental Status: Mental status NL, Mood NL Labs/Xrays Labs Test 04/06/24 13:34 04/06/24 12:16 Range/Units Troponin I High Sensitivity 10 </=34 ng/L White Blood Count 4.5 4.4-10.8 10^3/uL Red Blood Count 4.02 4.0-5.20 10^6/uL Hemoglobin 12.1 L 12.2-16.2 g/dL Hematocrit 33.9 L 36.0-46.0 % Mean Corpuscular Volume 84.2 80.0-100.0 fL Mean Corpuscular Hemoglobin 30.0 28.0-32.0 pg Mean Corpuscular Hemoglobin Concent 35.7 32.0-36.0 g/dL Red Cell Distribution Width 16.7 H 11.8-14.3 % Platelet Count 257 140-450 10^3/uL Mean Platelet Volume 8.8 6.9-10.8 fL Neutrophils (%) (Auto) 37.0-80.0 % Lymphocytes (%) (Auto) 10.0-50.0 % Monocytes (%) (Auto) 0.0-12.0 % Basophils (%) (Auto) 0.0-2.0 % Neutrophils # (Auto) 1.6-8.6 10 ^3/uL Lymphocytes # (Auto) 0.4-5.4 10 ^3/uL Monocytes # (Auto) 0-1.3 10 ^3/uL Differential Total Cells Counted 100.0 100 Neutrophils % (Manual) 50 37.0-80.0 Band Neutrophils % (Manual) 1 Lymphocytes % (Manual) 31 10.0-50.0 Monocytes % (Manual) 17 H 0-12 Eosinophils % (Manual) 1 0-7 Basophils % (Manual) 0 0.0-2.0 Metamyelocytes % (manual) 0 Myelocytes % (Manual) 0 Promyelocytes % (Manual) 0 Blast Cells % (Manual) 0 Reactive Lymphocytes 0 Platelet Estimate [place] Large Platelets Few Sodium Level 138 136-145 mmol/L Potassium Level 3.8 3.5-5.1 mmol/L Chloride Level 104 98-107 mmol/L Carbon Dioxide Level 28 20-31 mmol/L Anion Gap 6 5-15 Blood Urea Nitrogen 17 9-23 mg/dL Creatinine 0.90 0.550-1.02 mg/dL Glomerular Filtration Rate Calc 65 >90 mL/min BUN/Creatinine Ratio 18.9 10.0-20.0 Serum Glucose 89 74-106 mg/dL Calcium Level 9.9 8.7-10.4 mg/dL Total Bilirubin 0.6 0.2-1.0 mg/dL Aspartate Amino Transferase (AST) 23 13-40 U/L Alanine Aminotransferase (ALT) 11 7-40 U/L Alkaline Phosphatase 78 46-116 U/L Total Protein 7.5 5.7-8.2 g/dL Albumin 4.3 3.2-4.8 g/dL EXAM: CT HEAD WITHOUT CONTRAST INDICATION: HTN TECHNIQUE: CT of the head without intravenous contrast. Radiation Dose : 1. Head: CT Dose: CTDI volume is 63.4 mGy. Dose-length product is 1122.4 mGy*cm The dose indicators for CT are the volume Computed Tomography (CT) Dose Index (CTDIvol) and the Dose Length Product (DLP), and are measured in units of mGy and mGy-cm, respectively. These indicators are not patient dose, but values generated from the CT scanner acquisition factors. The report includes radiation exposure data for exposures received during this examination. COMPARISON: None FINDINGS: There is no evidence of acute intracranial hemorrhage, extra-axial collection, mass effect, midline shift, herniation or hydrocephalus. The ventricles, sulci and cisterns are age appropriate. The brandon-white differentiation is intact. The visualized paranasal sinuses and mastoid air cells are clear. The surrounding soft tissues and osseous structures are unremarkable. IMPRESSION: No acute intracranial abnormality. EXAM: XY CHEST PORTABLE Indication: HTN Technique: Single frontal view of the chest was obtained Comparison: CHEST PORTABLE on DOS: 02/01/21, CHEST PORTABLE on DOS: 01/29/21, CHEST PORTABLE on DOS: 01/28/21 FINDINGS: Lines and Tubes: None Lungs: No focal consolidation. Pleura: No effusion. No pneumothorax. Cardiomediastinal contours: Unremarkable. Atherosclerotic vascular calcifications of the thoracic aorta are noted. Bones: No acute osseous abnormality. IMPRESSION: No acute cardiopulmonary disease. Assessment/Plan Assessment/Plan Assessment/Plan: Hypertensive urgency Labs Nitroglycerin given in ED CT head noted Manual differential Troponin negative EKG Chest x-ray noted UA A.m. labs Antihypertensive Chronic hypertension Continue medications History of gout Continue home medications History of anemia Monitor FEN/PPX Diet Hep-Lock DVT prophylaxis not indicated patient ambulating PUD prophylaxis not indicated no history of GERD or GI bleed Admit to med surg Home medications reconciled Discussed plan of care with patient and nurse Plan discussed with: Patient Date of Service: Apr 06, 2024 Billing Provider: ASHWINI TRONCOSO Common Visit Codes: [id number] INP/OBS CARE (HIGH) ASHWINI TRONCOSO Apr 06, 2024 15:28
[2024-04-06] MEDS ORDERED: FERR325T20 (15:29)
[2024-04-06] MEDS ORDERED: LOSA-534 PO (15:29)
[2024-04-06] MEDS ORDERED: ALEN70TA74 (15:29)
[2024-04-06] MEDS ORDERED: IPRATROPIUM BROM 0.5 MG/2.5ML INH SOL NEB PRN (15:30)
[2024-04-06] MEDS ORDERED: ALBUTEROL SULF 2.5 MG/0.5ML(0.5%) NEB SOLN NEB PRN (15:30)
[2024-04-06 15:45] VITALS: BP 177/78; PULSE 67; RESP 16; TEMP 97.9; O2SAT 99
[2024-04-06 19:34] VITALS: RESP 18; O2SAT 97
[2024-04-06 21:39] VITALS: BP 199/66; PULSE 65; RESP 18; TEMP 98.5; O2SAT 98
[2024-04-07] MEDS: ALLOPURINOL 100 MG TAB PO SCH
[2024-04-07] MEDS ORDERED: CHOLECALCIFEROL (VITD3) 1,000UNIT=25mCg TAB PO SCH (10:00)
[2024-04-07] MEDS ORDERED: amLODIPine BESYLATE 5 MG TAB PO SCH (10:00)
== END 2024-04-07 00:20 | disposition left against medical advice (07) | DRG 305 ==
LOC: ER 11:55 → OVERFLOW 15:15
DX: I16.0 Hypertensive urgency (principal); D64.9 Anemia, unspecified; M10.9 Gout, unspecified; Z53.29 Procedure and treatment not carried out because of patient's decision for other reasons; I10 Essential (primary) hypertension; Z82.49 Family history of ischemic heart disease and other diseases of the circulatory system; Z83.3 Family history of diabetes mellitus
CPT/HCPCS: 36415; 70450; 71045; 80053; 84484; 85007; 85027; 93005; 99291; G0378